=== PATIENT | male | born 1955 | race Caucasian/White ===

== ENCOUNTER 2022-01-12 13:56 | Emergency (ER) | payer MEDICARE ==
[2022-01-12 14:03] VITALS: BP 162/90; PULSE 84; RESP 20; TEMP 100.4
--- NOTE | 2022-01-12 15:13 | ED ---
General Adult HPI - General Chief complaint: Fall Stated complaint: fall Time Seen by Provider: 01/12/22 15:03 Source: patient, RN notes reviewed, old records reviewed Mode of arrival: ambulatory Limitations: no limitations - History of Present Illness Initial comments: 6-year-old male presents status post fall. Patient states he was going down 3 steps with his walker, lost his balance falling forward landing on his walker. He had a left upper lip injury. He states he did have a headache after the fall but this is subsiding. He denies anticoagulation. He denies chest or abdominal pain. No lower extremity injuries. Review of Systems ROS Statement: Those systems with pertinent positive or pertinent negative responses have been documented in the HPI. ROS Other: All systems not noted in ROS Statement are negative. General Exam General appearance: alert, in no apparent distress Head exam: Present: atraumatic, normocephalic Eye exam: Present: normal appearance, PERRL ENT exam: Present: other (Has a swollen left upper lip with no active bleeding. Poor dentition. Superficial laceration of both the upper and lower lip mucosal surface.) Neck exam: Present: normal inspection, full ROM. Absent: tenderness Cardiovascular Exam: Present: regular rate, normal rhythm GI/Abdominal exam: Present: soft. Absent: distended, tenderness Extremities exam: Present: normal inspection, normal capillary refill. Absent: pedal edema Neurological exam: Present: alert, oriented X3, CN II-XII intact. Absent: motor sensory deficit Psychiatric exam: Present: normal affect, normal mood Skin exam: Present: warm, dry Course Vital Signs 01/12/22 13:58 Temperature 100.4 F H Pulse Rate 84 Respiratory 20 Rate Blood Pressure 162/90 O2 Sat by Pulse 95 Oximetry Medical Decision Making - Medical Decision Making 66-year-old male status post fall with facial injury, no anticoagulation, no loss consciousness. Head CT is performed which is negative for intracranial hemorrhage, CT cervical spine negative for fracture subluxation. Facial bones shows a minimally displaced nasal bone fracture. Patient feeling better without pain medication or specific treatment. He is eager for discharge. Disposition Clinical Impression: Fall, Concussion, Nasal bone fracture Disposition: HOME SELF-CARE Condition: Good Instructions (If sedation given, give patient instructions): Fall Prevention (ED), Nasal Fracture (ED), Concussion (ED) Is patient prescribed a controlled substance at d/c from ED?: No Referrals: None,Stated [Primary Care Provider] - 1-2 days Time of Disposition: 16:23
--- NOTE | 2022-01-12 15:50 | CT ---
EXAMINATION TYPE: CT facial bones wo con DATE OF EXAM: 01/12/2022 COMPARISON: None HISTORY: ams, fall CT DLP: combined DLP 1189.3 mGycm Automated exposure control for dose reduction was used. Images obtained from the bottom of the mandible to the top of the frontal sinuses without contrast. The mandibular ring appears intact. Temporomandibular joints are intact. Zygomatic arches appear norm al. The maxilla appears intact. No evidence of orbital blowout fracture. Orbital margins are intact. There is no retro-orbital mass. There is fracture of the nasal bone and deviation to the right side. There is fairly normal aeration of the paranasal sinuses. IMPRESSION: Nasal bone fracture.
--- NOTE | 2022-01-12 15:55 | CT ---
EXAMINATION TYPE: CT brain jordan wo con DATE OF EXAM: 01/12/2022 COMPARISON: None HISTORY: ams, fall CT DLP: combined DLP 1189.3 mGycm Automated exposure control for dose reduction was used. Images of the brain and cervical spine obtained without contrast. There is hypodensity in the periventricular white matter. There is no mass effect or midline shift. T here is cerebral cortical atrophy. There is no evidence of intracranial hemorrhage. Cervical vertebra have normal alignment. There is degenerative disc space narrowing at C4-5 and C5-6 and C6-7 with extensive anterior spurring. There is multilevel hypertrophic facet arthropathy. No fra cture seen. There are no cervical ribs. IMPRESSION: Moderate multilevel cervical spondylotic changes. No fracture. Cerebral atrophy and chronic small vessel ischemia. No acute intracranial abnormality.
== END 2022-01-12 16:52 | disposition home or self-care (01) ==
LOC: EC 13:56
DX: S06.0X0A Concussion without loss of consciousness, initial encounter (principal); S02.2XXA Fracture of nasal bones, initial encounter for closed fracture; S01.511A Laceration without foreign body of lip, initial encounter; R40.2412 Glasgow coma scale score 13-15, at arrival to emergency department; W01.0XXA Fall on same level from slipping, tripping and stumbling without subsequent striking against object, initial encounter
CPT/HCPCS: 70450; 70486; 72125; 99284

== ENCOUNTER → 2023-05-20 | Outpatient (CLI) | payer MEDICARE ==
--- NOTE | 2023-05-20 16:17 | US ---
EXAMINATION TYPE: US scrotum with doppler. Grayscale and color Doppler Duplex imaging performed of biju cruz scrotum. DATE OF EXAM: 05/20/2023 COMPARISON: NONE CLINICAL INDICATION: Male, 67 years old with history of N50.812 L TESTICULAR PAIN; Left testicular pa in x 1 month EXAM MEASUREMENTS: TESTICLES: Right Testicle: 3.7 x 1.8 x 2.4 cm Left Testicle: 4.7 x 2.6 x 2.4 cm EPIDIDYMIS HEAD: Right Epididymis: 1.2 cm, 2 small cysts Left Epididymis: 1.2 cm Doppler performed to assess for testicular vascularity; good bilateral color flow and waveforms are s een. There is no evidence of testicular torsion. Slight increase vascular flow to the left testis. Presence of hydroceles: right - 3.0cm Presence of varicoceles: no IMPRESSION: 1. Slightly increased asymmetric left testis blood flow, correlate for epididymoorchitis. 2. Trace right hydrocele.
== END | disposition home or self-care (01) ==
LOC: RADUSWWP 15:35
PROVIDERS: ATTEND Family Medicine
DX: N50.812 Left testicular pain (principal); N43.3 Hydrocele, unspecified
CPT/HCPCS: 76870; 93975

== ENCOUNTER → 2023-06-04 | Outpatient (CLI) | payer MEDICARE ==
[2023-06-04 08:44] LABS: African American GFR (CKD) >90 (>60 ml/min/1.73 sqM); Blood Urea Nitrogen 12 mg/dL (9-20); Non-African American GFR(CKD) >90 (>60 ml/min/1.73 sqM)
--- NOTE | 2023-06-04 12:08 | CT ---
EXAMINATION TYPE: CT abdomen pelvis w con CT DLP: 1652.5 mGycm, Automated exposure control for dose reduction was used. DATE OF EXAM: 06/04/2023 10:13 AM COMPARISON: None CLINICAL INDICATION:Male, 67 years old with history of N50.812 TESTICULAR PAIN R10.12 ABD PAIN; test icular pain mostly on left side TECHNIQUE: Axial CT of the abdomen and pelvis. Sagittal and coronal reformats were created on a [employer] workstation. Contrast used:100 mL of Isovue 300 with IV Contrast, (none if empty) Oral contrast used: with Oral Contrast (none if empty) FINDINGS: LOWER CHEST: Calcifications of the coronary arteries. ABDOMEN LIVER: Unremarkable GALLBLADDER AND BILE DUCTS: Unremarkable. PANCREAS: Unremarkable. SPLEEN: Unremarkable. ADRENAL GLANDS: Unremarkable. KIDNEYS AND URETERS: No evidence of hydronephrosis or renal calculus. The ureters are unremarkable. PELVIS BLADDER: Unremarkable REPRODUCTIVE: Prostate is enlarged in size measuring 5.7 cm in transverse dimension. ABDOMEN & PELVIS STOMACH AND BOWEL: No evidence of bowel obstruction. Moderate to large stool burden throughout the co [place]. Appendix is normal. PERITONEUM/RETROPERITONEUM: No evidence of pneumoperitoneum or free fluid. VASCULATURE: No evidence of aortic aneurysm. MUSCULOSKELETAL: Postsurgical changes to the lower lumbar spine with hardware L3-L5. Hardware appears intact. Multilevel disc degeneration changes throughout the Thoracic spine.. LYMPH NODES: No gross evidence for lymphadenopathy. SOFT TISSUE/ABDOMINAL WALL: Unremarkable IMPRESSION: 1. No evidence for acute intra-abdominal process to explain the patient's pain. No intraabdominal ma ss. 2. Postsurgical changes to the spine which appears intact. 3. Prostatomegaly, correlate with serum PSA.
== END | disposition home or self-care (01) ==
LOC: RADCTMAIN 08:06
PROVIDERS: ATTEND Family Medicine
DX: N50.812 Left testicular pain (principal); N40.0 Benign prostatic hyperplasia without lower urinary tract symptoms
CPT/HCPCS: 82565; 84520; 74177; 36415; Q9967